=== PATIENT | female | born 1985 | race Caucasian/White ===

== ENCOUNTER 2017-08-27 12:38 | Emergency (ER) | payer OTHER ==
[2017-08-27 12:45] VITALS: BP 115/71; PULSE 117; TEMP 97.7; BMI 25.4
--- NOTE | 2017-08-27 13:17 | PDOC ---
History of Present Illness - General Chief Complaint: Injury Stated Complaint: ANKLE PAIN Time Seen by Provider: 08/27/17 13:06 History Source: Patient - History of Present Illness Occurred: reports: yesterday Lower Extremity Pain Location: right: ankle Method of Injury: Yes: twisted Past History - Past Medical History Allergies/Adverse Reactions: Allergies Allergy/AdvReac Type Severity Reaction Status Date / Time erythromycin base Allergy Verified 08/27/17 12:46 Home Medications: Ambulatory Orders NK [No Known Home Medication] 08/27/17 COPD: No - Suicide/Smoking/Psychosocial Hx Smoking History: Never smoked Review of Systems - Review of Systems Musculoskeletal: Yes: Joint Pain, Joint Swelling *Physical Exam - Vital Signs Last Vital Signs Temp Pulse Resp BP Pulse Ox 97.7 F 117 H 20 115/71 98 08/27/17 12:43 08/27/17 12:43 08/27/17 12:43 08/27/17 12:43 08/27/17 12:43 - Physical Exam General Appearance: Yes: Appropriately Dressed. No: Apparent Distress HEENT: positive: Normal Voice Neck: positive: Supple Respiratory/Chest: negative: Respiratory Distress Extremity: positive: Tender, Swelling Integumentary: positive: Dry, Warm Neurologic: positive: Fully Oriented, Alert, Normal Mood/Affect ED Treatment Course - RADIOLOGY Radiology Studies Ordered: Category Date Time Status ANKLE & FOOT-RIGHT* [RAD] Stat Radiology 08/27/17 13:07 Ordered Medical Decision Making - Medical Decision Making 08/27/17 13:15 31-year-old female, no significant history here with right ankle pain and swelling after twisting injury yesterday. States swelling has significantly improved but still has some pain. Taking Motrin with some relief. Able to bear weight. Patient well-appearing, in stable with moderate swelling to lateral malleolus of right ankle with no significant tenderness. Possibly sprain, will rule out fracture 08/27/17 13:34 Xray neg for fx, NASH applied. DC w/ supportive tx and ortho f/u as needed *DC/Admit/Observation/Transfer Diagnosis at time of Disposition: Ankle sprain Qualifiers: Encounter type: initial encounter Involved ligament of ankle: unspecified ligament Laterality: right Qualified Code(s): S93.401A - Sprain of unspecified ligament of right ankle, initial encounter - Discharge Dispostion Disposition: HOME Condition at time of disposition: Good - Referrals Referrals: Aniyah Fuller MD [Primary Care Provider] - Miguel Brennan MD [Staff Physician] - - Patient Instructions Printed Discharge Instructions: DI for Ankle Sprain Additional Instructions: You most likely have a sprained ankle. Use Nash and ice for swelling. Also elevate extremity at home. Patient to take Motrin as needed. If symptoms persist after 2 weeks, please follow-up with Dr. Brennan of orthopedics - Post Discharge Activity
== END 2017-08-27 13:43 | disposition home or self-care (01) ==
LOC: JERFT 12:38
DX: S93.401A Sprain of unspecified ligament of right ankle, initial encounter (principal); W19.XXXA Unspecified fall, initial encounter; X50.1XXA Overexertion from prolonged static or awkward postures, initial encounter; Y93.89 Activity, other specified; Y92.89 Other specified places as the place of occurrence of the external cause; Y99.8 Other external cause status
CPT/HCPCS: 73610-TC-RT-FY; 73630-TC-RT-FY; 99281-25

== ENCOUNTER 2021-05-10 15:57 | Emergency (ER) | payer OTHER ==
[2021-05-10 16:24] VITALS: TEMP 98.6; BMI 22.3
[2021-05-10] MEDS ORDERED: ACETAMINOPHEN 325 MG TABLET (FP) PO ONE (17:18)
[2021-05-10] MEDS ORDERED: ACETAMINOPHEN 500 MG TABLET (FP) ONE (17:26)
[2021-05-10 19:39] VITALS: BP 118/77; PULSE 88
== END 2021-05-10 19:51 | disposition home or self-care (01) ==
LOC: JER 15:57
DX: S06.0X0A Concussion without loss of consciousness, initial encounter (principal); W50.0XXA Accidental hit or strike by another person, initial encounter
CPT/HCPCS: 70450-TC; 72040-TC; 99284-25

== ENCOUNTER 2023-08-04 10:05 | Inpatient (IN) | payer OTHER, BC ==
[2023-08-04] MEDS: DEXTROSE 5%-LACTATED RINGERS 1,000 ML IV SCH (11:15)
[2023-08-04 12:06] LABS: BASO % 0.2 % (0-2.0); EOS % 0.5 % (0-4.5); HEMATOCRIT 30.2 % (32.4-45.2); HEMOGLOBIN 10.1 GM/dL (10.7-15.3); LYMPH % 10.6 % (8-40); MCH 28.2 pg (25.7-33.7); MCHC 33.5 g/dl (32.0-36.0); MEAN CELL VOLUME 84.2 fl (80-96); MEAN PLT VOLUME 7.8 fl (7.5-11.1); MONO % 5.8 % (3.8-10.2); NEUT % 82.9 % (42.8-82.8); PLATELET COUNT 327 10^3/uL (134-434); RBC 3.59 M/mm3 (3.60-5.2); RDW 13.1 % (11.6-15.6); WHITE BLOOD COUNT 15.2 K/mm3 (4.0-10.0)
[2023-08-04 12:16] LABS: INR 1.12 (0.83-1.09); PROTHROMBIN TIME (PATIENT) 12.6 SEC (9.7-13.0)
[2023-08-04 12:19] LABS: ACTIVATED PTT 30.5 SECONDS (25.2-36.5)
[2023-08-04 12:33] LABS: POTASSIUM 4.3 mmol/L (3.5-5.1)
[2023-08-04 12:34] LABS: CALCIUM 9.1 mg/dL (8.5-10.1)
[2023-08-04 12:35] LABS: BLOOD UREA NITROGEN 5.3 mg/dL (7-18)
[2023-08-04 12:38] LABS: CREATININE 0.5 mg/dL (0.55-1.3)
[2023-08-04] MEDS ORDERED: OXYTOCIN 20 UNITS in 0.9% NS 20 UNIT/1,000 ML INFUS.BAG IV ONE (15:09)
[2023-08-04 16:25] VITALS: BMI 27.3
[2023-08-04] MEDS: METHYLERGONOVINE MALEATE 0.2 MG/1 ML AMP IM PRN (17:04)
[2023-08-04] MEDS: OXYTOCIN 20 UNITS in 0.9% NS 20 UNIT/1,000 ML INFUS.BAG IV SCH (17:20)
[2023-08-04] MEDS ORDERED: ELECTROLYTE-148 SOLN 1,000 ML IV SCH (17:45)
[2023-08-04] MEDS ORDERED: oxyCODONE HCL 5 MG TABLET PO PRN (18:03)
[2023-08-04] MEDS ORDERED: IBUPROFEN 600 MG TABLET (FP) PO PRN (18:03)
[2023-08-04] MEDS ORDERED: ACETAMINOPHEN 325 MG TABLET (FP) PO PRN (18:03)
[2023-08-04] MEDS ORDERED: WITCH HAZEL 50% (TUCKS) 40 PAD/JAR PAD TP PRN (18:03)
[2023-08-04] MEDS ORDERED: BENZOCAINE 20% 57 GM BOTTLE TP PRN (18:03)
[2023-08-04] MEDS ORDERED: BENZOCAINE 28 GM HEMORRHOIDAL OINTMENT TP PRN (18:03)
[2023-08-04] MEDS ORDERED: BISACODYL 10 MG SUPP.RECT RC PRN (18:03)
[2023-08-04 20:30] VITALS: RESP 18
[2023-08-05 07:01] LABS: BASO % 0.3 % (0-2.0); HEMATOCRIT 28.2 % (32.4-45.2); HEMOGLOBIN 9.6 GM/dL (10.7-15.3); LYMPH % 18.3 % (8-40); MEAN CELL VOLUME 85.4 fl (80-96); MEAN PLT VOLUME 7.2 fl (7.5-11.1); NEUT % 74.4 % (42.8-82.8); PLATELET COUNT 298 10^3/uL (134-434); RDW 13.1 % (11.6-15.6)
[2023-08-05 10:24] VITALS: BP 96/65; PULSE 86; TEMP 97.9
[2023-08-05] MEDS ORDERED: SENNOSIDES/DOCUSATE COMBO (SENNA PLUS) TABLET (UD) PO PRN (22:00)
[2023-08-08 13:48] LABS: POC NITRAZINE POS
== END 2023-08-05 12:00 | disposition home or self-care (01) | DRG 560 ==
LOC: JDEL 10:05 → JLDR 14:30 → J3W 20:01
PROVIDERS: ADMIT Obstetrics & Gynecology; ATTEND Obstetrics & Gynecology
PROC: 10E0XZZ Delivery of Products of Conception, External Approach (ICD-10-PCS; principal; 2023-08-04)
DX: O60.12X0 Preterm labor second trimester with preterm delivery second trimester, not applicable or unspecified (principal); Z3A.20 20 weeks gestation of pregnancy; Z37.1 Single stillbirth
CPT/HCPCS: 36415; 59409; 80048; 83986-QW; 85025; 85610; 85730; 86780; 86850; 86900; 86901; 88307-TC

== ENCOUNTER 2024-01-11 03:21 | Emergency (ER) | payer BC, OTHER ==
[2024-01-11 03:37] VITALS: BP 107/76; PULSE 82; RESP 18; TEMP 98.6; BMI 28.8
[2024-01-11 04:47] LABS: BASO % 0.5 % (0-2.0); EOS % 1.2 % (0-4.5); HEMATOCRIT 35.4 % (32.4-45.2); HEMOGLOBIN 11.9 GM/dL (10.7-15.3); LYMPH % 20.7 % (8-40); MCH 27.6 pg (25.7-33.7); MCHC 33.5 g/dl (32.0-36.0); MEAN CELL VOLUME 82.5 fl (80-96); MEAN PLT VOLUME 7.8 fl (7.5-11.1); MONO % 4.5 % (3.8-10.2); NEUT % 73.1 % (42.8-82.8); PLATELET COUNT 325 10^3/uL (134-434); RBC 4.29 M/mm3 (3.60-5.2); RDW 14.8 % (11.6-15.6)
[2024-01-11 05:16] LABS: INR 1.02 (0.83-1.09); PROTHROMBIN TIME (PATIENT) 11.5 SEC (9.7-13.0)
[2024-01-11 05:19] LABS: ACTIVATED PTT 31.9 SECONDS (25.2-36.5)
[2024-01-11 05:27] LABS: POTASSIUM 4.4 mmol/L (3.5-5.1)
[2024-01-11 05:30] LABS: ALBUMIN 3.1 g/dl (3.4-5.0)
[2024-01-11 05:33] LABS: CREATININE 0.5 mg/dL (0.55-1.3)
[2024-01-11 05:35] LABS: BILIRUBIN,TOTAL 0.3 mg/dL (0.2-1)
[2024-01-11 06:22] LABS: EPI CELLS 5 /uL (0-25.1); HYALINE CASTS 0 /uL (0-3.1); PH,URINE 6.5 (5.0-8.0); URINE APPEARANCE CLEAR; URINE BACTERIA 12 /uL (0-1359); URINE BILIRUBIN NEGATIVE (NEGATIVE); URINE COLOR YELLOW; URINE GLUCOSE (UA) NEGATIVE (NEGATIVE); URINE KETONE NEGATIVE (NEGATIVE); URINE LEUK ESTERASE NEGATIVE (NEGATIVE); URINE NITRITE NEGATIVE (NEGATIVE); URINE PROTEIN NEGATIVE (NEGATIVE); URINE RBC 42 /uL (0-23.9); URINE UROBILINOGEN 0.2 mg/dL (0.2-1.0); URINE WBC 1 /uL (0-25.8)
[2024-01-11 06:36] LABS: BLOOD UREA NITROGEN 9.9 mg/dL (7-18); CALCIUM 8.9 mg/dL (8.5-10.1)
[2024-01-11 07:52] LABS: TOT PROT 6.4 g/dl (6.4-8.2)
== END 2024-01-11 06:53 | disposition home or self-care (01) ==
LOC: JER 03:21
DX: O09.521 Supervision of elderly multigravida, first trimester (principal); O20.0 Threatened abortion; Z3A.13 13 weeks gestation of pregnancy
CPT/HCPCS: 36415; 80053; 81003; 84702; 85025; 85610; 85730; 86850; 86900; 86901; 87086; 99284-25

== ENCOUNTER 2024-01-15 05:18 | Day surgery (SDC) | payer BC, OTHER ==
[2024-01-11 13:08] VITALS: BMI 28.8
[2024-01-15] MEDS ORDERED: LACTATED RINGERS SOLUTION 1,000 ML IV SCH (13:30)
[2024-01-15] MEDS: ceFAZolin SODIUM 1 GM VIAL IVPB ONE (13:49)
[2024-01-15 16:57] VITALS: RESP 20; TEMP 97.3
[2024-01-15 20:23] VITALS: BP 110/71; PULSE 70
== END 2024-01-15 20:55 | disposition home or self-care (01) ==
LOC: JASU-SURG 05:18
PROVIDERS: ATTEND Obstetrics & Gynecology
PROC: 0UVC7ZZ Restriction of Cervix, Via Natural or Artificial Opening (ICD-10-PCS; principal; 2024-01-15 12:00)
DX: O34.31 Maternal care for cervical incompetence, first trimester (principal); Z3A.13 13 weeks gestation of pregnancy
CPT/HCPCS: 76815; 94760

== ENCOUNTER 2024-07-18 14:15 | Inpatient (IN) | payer BC, OTHER ==
[2024-07-18] MEDS: ELECTROLYTE-148 SOLN 1,000 ML IV SCH (15:30)
[2024-07-18 16:15] VITALS: BMI 31.9
[2024-07-18 16:55] LABS: ABSOLUTE IMMATURE GRANULOCYTES 0.09 x10^3/uL (0.0-0.031); BASOPHILS # 0.02 x10^3/uL (0.01-0.08); EOSINOPHIL % 0.3 % (0.7-5.8); EOSINOPHILS # 0.04 x10^3/uL (0.04-0.36); HEMATOCRIT 36.2 % (34.1-44.9); HEMOGLOBIN 11.8 g/dL (11.2-15.7); MCHC 32.6 g/dl (32.2-35.5); MEAN PLT VOLUME 10.2 fl (9.4-12.3); MONOCYTE # 0.49 x10^3/uL (0.24-0.86); MONOCYTE % 4.1 % (4.7-12.5); PLATELET COUNT 321 x10^3/uL (182-369); RDW 13.6 % (12.1-16.8)
[2024-07-18 17:30] LABS: CALCIUM 8.5 mg/dL (8.5-10.1); POTASSIUM 4.2 mmol/L (3.5-5.1)
[2024-07-18 17:31] LABS: BLOOD UREA NITROGEN 13.9 mg/dL (7-18)
[2024-07-18 17:34] LABS: CREATININE 0.4 mg/dL (0.55-1.3)
[2024-07-18 17:38] LABS: INR 1.02 (0.83-1.09); PROTHROMBIN TIME (PATIENT) 11.2 SEC (9.7-13.0)
[2024-07-18] MEDS ORDERED: FENTANYL/BUPIVACAINE/NS/PF - PCEA - 50 ML DISP.SYRIN EP ONE (17:46)
[2024-07-18] MEDS ORDERED: BUPIVACAINE HCL/PF 0.25% (2.5MG/ML) 10 ML VIAL ONE (17:47)
[2024-07-18] MEDS ORDERED: FENTANYL CITRATE/PF 50 MCG/ML VIAL ONE (17:47)
[2024-07-18 18:02] LABS: ACTIVATED PTT 29.8 SECONDS (25.2-36.5)
[2024-07-18] MEDS: FENTANYL/BUPIVACAINE/NS/PF - PCEA - 50 ML DISP.SYRIN EP SCH (18:05)
[2024-07-18] MEDS ORDERED: NALOXONE HCL 0.4 MG/ML VIAL IVPUSH PRN (18:40)
[2024-07-18] MEDS ORDERED: OXYTOCIN 20 UNITS in 0.9% NS 20 UNIT/1,000 ML INFUS.BAG IV ONE (20:10)
[2024-07-18] MEDS ORDERED: OXYTOCIN 30 UNITS in 0.9% NS 30 UNIT/500 ML INFUS.BAG IVPB ONE (21:04)
[2024-07-18] MEDS: OXYTOCIN 30 UNITS in 0.9% NS 30 UNIT/500 ML INFUS.BAG IVPB SCH (21:07)
[2024-07-18] MEDS: OXYTOCIN 20 UNITS in 0.9% NS 20 UNIT/1,000 ML INFUS.BAG IV SCH (22:27)
[2024-07-18 22:48] LABS: CORD BASE EXCESS -5.2 mmol/L (0-2); CORD HCO3 22.4 mmHg (20-29); CORD PCO2 50.4 mmHg (30-78); CORD pH 7.265 (7.14-7.44)
[2024-07-18] MEDS ORDERED: BENZOCAINE 28 GM HEMORRHOIDAL OINTMENT TP PRN (22:48)
[2024-07-18] MEDS ORDERED: BISACODYL 10 MG SUPP.RECT RC PRN (22:48)
[2024-07-18] MEDS ORDERED: oxyCODONE HCL 5 MG TABLET PO PRN (22:48)
[2024-07-18] MEDS ORDERED: METHYLERGONOVINE MALEATE 0.2 MG/1 ML AMP IM PRN (22:48)
[2024-07-18] MEDS ORDERED: WITCH HAZEL 50% (TUCKS) 40 PAD/JAR PAD TP PRN (22:48)
[2024-07-19] MEDS: ELECTROLYTE-148 SOLN 1,000 ML IV SCH (01:24)
[2024-07-19] MEDS: ACETAMINOPHEN 325 MG TABLET (FP) PO PRN (01:49)
[2024-07-19 08:28] LABS: ABSOLUTE IMMATURE GRANULOCYTES 0.09 x10^3/uL (0.0-0.031); BASOPHILS # 0.03 x10^3/uL (0.01-0.08); EOSINOPHIL % 0.2 % (0.7-5.8); EOSINOPHILS # 0.03 x10^3/uL (0.04-0.36); HEMATOCRIT 27.2 % (34.1-44.9); HEMOGLOBIN 8.8 g/dL (11.2-15.7); MCHC 32.4 g/dl (32.2-35.5); MEAN CELL VOLUME 86.9 fl (79.4-94.8); MEAN PLT VOLUME 10.2 fl (9.4-12.3); MONOCYTE # 0.76 x10^3/uL (0.24-0.86); PLATELET COUNT 264 x10^3/uL (182-369); RDW 13.7 % (12.1-16.8)
[2024-07-19] MEDS: PRENATAL VITAMINS W/ FOLIC ACID TABLET (FP) PO SCH (09:58)
[2024-07-19] MEDS: IBUPROFEN 600 MG TABLET (FP) PO PRN (09:58)
[2024-07-19] MEDS ORDERED: SENNOSIDES/DOCUSATE COMBO (SENNA PLUS) TABLET (UD) PO PRN (22:00)
[2024-07-20 10:27] VITALS: BP 108/68; PULSE 87; RESP 17; TEMP 97.9
[2024-07-20] MEDS: BENZOCAINE 20% 57 GM BOTTLE TP PRN (15:47)
[2024-07-22 10:57] LABS: POC NITRAZINE NEG
== END 2024-07-20 16:00 | disposition home or self-care (01) | DRG 807 ==
LOC: JDEL 14:15 → JLDR 15:15 → J3W 07-19 01:27
PROVIDERS: ADMIT Obstetrics & Gynecology; ATTEND Obstetrics & Gynecology
PROC: 10E0XZZ Delivery of Products of Conception, External Approach (ICD-10-PCS; principal; 2024-07-18)
PROC: 0W8NXZZ Division of Female Perineum, External Approach (ICD-10-PCS; 2024-07-18)
DX: O80 Encounter for full-term uncomplicated delivery (principal); Z37.0 Single live birth; Z3A.39 39 weeks gestation of pregnancy
CPT/HCPCS: 36415; 36600; 59025; 59409; 80048; 82803; 83986-QW; 85025; 85610; 85730; 86780; 86850; 86900; 86901; 88304-TC